=== PATIENT | male | born 1995 | race Caucasian/White ===

== ENCOUNTER 2021-01-15 02:41 | Emergency (ER) | payer OTHER ==
[~2021-01-15] VITALS: Ht 185.4 cm; Wt 113.6 kg
[2021-01-15 02:49] VITALS: TEMP 98
[2021-01-15 03:07] LABS: COLLECTION METHOD CLEAN CATCH
[2021-01-15 03:13] LABS: MUCOUS Present /lpf; PH 5 (5-8); SQUAMOUS EPITHELIAL None Seen /hpf; URINE APPEARANCE Clear; URINE BACTERIA None Seen /hpf; URINE BILIRUBIN Negative (NEGATIVE); URINE BLOOD Negative (NEGATIVE); URINE COLOR Yellow; URINE GLUCOSE Negative (NEGATIVE); URINE KETONE Negative (NEGATIVE); URINE LEUKOCYTE ESTERASE Negative (NEGATIVE); URINE NITRATE Negative (NEGATIVE); URINE PROTEIN(semi-quant) Negative (NEGATIVE); URINE RBC 0-2 /hpf
[2021-01-15] MEDS ORDERED: BACTRIM DS 8001 TAB PO (03:41)
[2021-01-15] MEDS ORDERED: CEPHALEXIN500 M1 PO (03:41)
[2021-01-15 03:47] VITALS: BP 133/70; PULSE 76
== END 2021-01-15 03:47 | disposition home or self-care (01) ==
LOC: COL.ER 02:41
PROVIDERS: Emergency Medicine
DX: T21.06XA Burn of unspecified degree of male genital region, initial encounter (principal); W89.0XXA Exposure to welding light (arc), initial encounter

== ENCOUNTER 2021-03-21 03:11 | Emergency (ER) | payer OTHER ==
[~2021-03-21] VITALS: Ht 188 cm; Wt 106.8 kg
[~2021-03-21 03:11] MED LIST: BACTRIM DS 8001 TAB PO; CEPHALEXIN500 M1 PO
[2021-03-21 03:24] VITALS: TEMP 100.2
[2021-03-21 04:39] VITALS: BP 119/77; PULSE 116
== END 2021-03-21 04:39 | disposition home or self-care (01) ==
LOC: COL.ER 03:11
DX: U07.1 COVID-19 (principal)
CPT/HCPCS: J1885